=== PATIENT | male | born 1965 | race American Indian/Alaskan Native ===

== ENCOUNTER 2020-07-22 11:30 | Emergency (ER) | payer SELFPAY ==
[2020-07-22] MEDS ORDERED: ACETAMINOPHEN 325 MG TAB PO STA (12:07)
[2020-07-22] MEDS ORDERED: IPRATROPIUM 0.02% NEBU 2.5 ML IH ONE (12:07)
[2020-07-22] MEDS ORDERED: ALBUTEROL 2.5 MG/3 ML NEBU IH ONE (12:07)
[2020-07-22] MEDS ORDERED: IBUPROFEN 400 MG TAB PO ONE (12:08)
--- NOTE | 2020-07-22 12:09 | Emergency Department Report ---
ED General Adult HPI - General Chief complaint: Dyspnea/Respdistress Stated complaint: SHORTNESS OF BREATH PUI?: Yes Time Seen by Provider: 07/22/20 11:48 Source: patient, EMS ( EMS documentation not available at time of chart dictation ), RN notes reviewed Mode of arrival: Ambulatory Limitations: No Limitations - History of Present Illness Initial comments: The patient was evaluated in the emergency department for symptoms described in the history of present illness. He/she was evaluated in the context of the global COVID-19 pandemic, which necessitated consideration that the patient might be at risk for infection with the virus that causes COVID-19. Institutional protocols and algorithms that pertain to the evaluation of patients at risk for COVID-19 are in a state of rapid change based on information released by regulatory bodies including the CDC and federal and state organizations. These policies and algorithms were followed during the patient's care in the emergency department. Please note that these policies, procedures and recommendations changed on a rapid basis. During the entire history and physical examination, I had on complete personal protective equipment. The patient is a 55-year-old gentleman. He is not known to myself previously. He has a history of tobacco consumption The patient reports multiple negative COVID tests. He presents to the ER with a complaint of cough, chest wall pain with coughing, nasal congestion, clear mucus. Patient denies fever, chills, vomiting, diaphoresis, leg pain, leg swelling, DVT, pulmonary embolism risk factors. He also reports multiple negative COVID tests. -: Gradual, days(s) Location: chest Severity scale (0 -10): 0 Quality: aching Consistency: intermittent Improves with: rest Worsens with: movement (And coughing) - Related Data Previous Rx's Medication Instructions Recorded Last Taken Type Acetaminophen [Non-Aspirin Extra 500 mg PO Q6HR PRN #30 tablet 07/22/20 Unknown Rx Strength] Albuterol Sulfate [Proair 90 mcg IH Q4HR PRN #2 aer.pow.ba 07/22/20 Unknown Rx Respiclick] Ibuprofen [Motrin] 600 mg PO Q8H PRN #30 tablet 07/22/20 Unknown Rx predniSONE [Deltasone] 40 mg PO QDAY #8 tab 07/22/20 Unknown Rx ED Review of Systems ROS: Stated complaint: SHORTNESS OF BREATH Other details as noted in HPI Constitutional: denies: fever Eyes: denies: eye discharge ENT: congestion Respiratory: cough Cardiovascular: chest pain. denies: syncope Gastrointestinal: denies: abdominal pain, nausea, vomiting Musculoskeletal: arthralgia, myalgia Neurological: denies: weakness ED Past Medical Hx - Past Medical History Previous Medical History?: Yes Hx Hypertension: Yes Hx Asthma: Yes Hx HIV: Yes - Surgical History Past Surgical History?: No - Social History Smoking Status: Never Smoker Substance Use Type: None - Medications Home Medications: Home Medications Medication Instructions Recorded Confirmed Last Taken Type Acetaminophen [Non-Aspirin Extra 500 mg PO Q6HR PRN #30 tablet 07/22/20 Unknown Rx Strength] Albuterol Sulfate [Proair 90 mcg IH Q4HR PRN #2 aer.pow.ba 07/22/20 Unknown Rx Respiclick] Ibuprofen [Motrin] 600 mg PO Q8H PRN #30 tablet 07/22/20 Unknown Rx predniSONE [Deltasone] 40 mg PO QDAY #8 tab 07/22/20 Unknown Rx ED Physical Exam - General Limitations: No Limitations General appearance: alert, in no apparent distress - Head Head exam: Present: atraumatic, normocephalic - Eye Eye exam: Present: normal appearance, EOMI. Absent: nystagmus - ENT ENT exam: Present: normal exam, normal orophraynx, mucous membranes moist, normal external ear exam - Neck Neck exam: Present: normal inspection, full ROM. Absent: tenderness, meningismus - Respiratory Respiratory exam: Present: wheezes, rhonchi. Absent: respiratory distress, c hest wall tenderness, accessory muscle use, decreased breath sounds, prolonged expiratory - Cardiovascular Cardiovascular Exam: Present: regular rate, normal rhythm, normal heart sounds. Absent: bradycardia, tachycardia, irregular rhythm, systolic murmur, diastolic murmur, rubs, gallop - GI/Abdominal GI/Abdominal exam: Present: soft. Absent: distended, tenderness, guarding, rebound, rigid, pulsatile mass - Rectal Rectal exam: Present: deferred - Extremities Exam Extremities exam: Present: normal inspection, full ROM, other (2+ pulses noted in the bilateral upper and lower extremities. There is no palpable cord. negative Homans sign. Muscular compartments are soft. The pelvis is stable.). Absent: pedal edema, calf tenderness - Back Exam Back exam: Present: normal inspection, full ROM. Absent: tenderness, CVA tenderness (R), CVA tenderness (L), paraspinal tenderness, vertebral tenderness - Neurological Exam Neurological exam: Present: alert, other (No facial droop. Tongue midline. Extraocular movements intact bilaterally. Facial sensation intact to light touch in V1, V2, V3 distribution bilaterally. 5 and a 5 strength in 4 extremities. Sensation intact to light touch in 4 extremities.). Absent: motor sensory deficit - Psychiatric Psychiatric exam: Present: normal affect, normal mood - Skin Skin exam: Present: warm, dry, intact, normal color. Absent: rash ED Course Vital Signs 07/22/20 07/22/20 07/22/20 11:37 11:45 11:55 Temperature 98.5 F Pulse Rate 68 82 Respiratory 16 18 Rate Blood Pressure 138/81 115/20 Blood Pressure 115/80 [Right] O2 Sat by Pulse 98 96 100 Oximetry 07/22/20 07/22/20 07/22/20 12:00 12:10 12:15 Temperature Pulse Rate 69 Respiratory 18 18 21 Rate Blood Pressure 124/83 124/83 Blood Pressure [Right] O2 Sat by Pulse 98 100 98 Oximetry 07/22/20 07/22/20 07/22/20 12:31 12:45 12:58 Temperature Pulse Rate Respiratory 18 17 18 Rate Blood Pressure 124/83 124/83 Blood Pressure [Right] O2 Sat by Pulse 97 96 Oximetry 07/22/20 13:00 Temperature Pulse Rate Respiratory 13 Rate Blood Pressure 124/83 Blood Pressure [Right] O2 Sat by Pulse 99 Oximetry ED Medical Decision Making - Lab Data Result diagrams: 07/22/20 12:27 07/22/20 12:27 Vital Signs 07/22/20 07/22/20 07/22/20 11:37 11:45 11:55 Temperature 98.5 F Pulse Rate 68 82 Respiratory 16 18 Rate Blood Pressure 138/81 115/20 Blood Pressure 115/80 [Right] O2 Sat by Pulse 98 96 100 Oximetry 07/22/20 07/22/20 07/22/20 12:00 12:10 12:15 Temperature Pulse Rate 69 Respiratory 18 18 21 Rate Blood Pressure 124/83 124/83 Blood Pressure [Right] O2 Sat by Pulse 98 100 98 Oximetry 07/22/20 07/22/20 07/22/20 12:31 12:45 12:58 Temperature Pulse Rate Respiratory 18 17 18 Rate Blood Pressure 124/83 124/83 Blood Pressure [Right] O2 Sat by Pulse 97 96 Oximetry 07/22/20 13:00 Temperature Pulse Rate Respiratory 13 Rate Blood Pressure 124/83 Blood Pressure [Right] O2 Sat by Pulse 99 Oximetry Lab Results 07/22/20 07/22/20 07/22/20 Range/Units 12:27 12:27 12:27 Hgb 14.0 (11.8-15.2) gm/dl Hct 42.2 (35.5-45.6) % Plt Count 173 (140-440) K/mm3 PT 12.9 (12.2-14.9) Sec. INR 0.96 (0.87-1.13) Sodium 139 (137-145) mmol/L Potassium 4.7 (3.6-5.0) mmol/L Chloride 101.4 (98-107) mmol/L Carbon Dioxide 24 (22-30) mmol/L Anion Gap 18 mmol/L BUN 13 (9-20) mg/dL Creatinine 0.7 L (0.8-1.3) mg/dL Estimated GFR > 60 ml/min BUN/Creatinine Ratio 19 % Glucose 88 (75-100) mg/dL Calcium 9.3 (8.4-10.2) mg/dL Magnesium 2.10 (1.7-2.3) mg/dL Total Creatine Kinase 291 H (55-170) units/L Troponin T < 0.010 (0.00-0.029) ng/mL - EKG Data -: EKG Interpreted by Ut EKG shows normal: sinus rhythm Rate: bradycardia - EKG Data 07/22/20 14:12 No prior EKG available for comparison. Sinus rhythm, bradycardia, 59 bpm, normal axis, normal intervals, minimal motion artifact, no prior EKG available for comparison, the EKG is not a STEMI - Radiology Data Radiology results: report reviewed, image reviewed Print Report Referring Physician: SAMRA ZAMUDIO Patient Name: NOHEMI BOYKIN Date of : 1965 Sex: Male Report Date: 2020-07-22 Report Status: Finalized Findings [facility] [address] [place] [address] XRay Report Signed Patient: NOHEMI BOYKIN I MR#: [id number] 9 : 1965 Acct:[id number] Age/Sex: 55 / M ADM Date: 07/22/20 Loc: ED Attending Dr: Ordering Physician: SAMRA ZAMUDIO MD Date of Service: 07/22/20 Procedure(s): XR chest 1V ap Accession Number(s): [id number] cc: SAMRA ZAMUDIO MD Fluoro Time In Minutes: CHEST 1 VIEW INDICATION / CLINICAL INFORMATION: dyspnea. COMPARISON: None available. FINDINGS: SUPPORT DEVICES: None. HEART / MEDIASTINUM: No significant abnormality. LUNGS / PLEURA: No significant pulmonary or pleural abnormality. No pneumothorax. ADDITIONAL FINDINGS: No significant additional findings. IMPRESSION: 1. No acute findings. Signer Name: Gopal Ambrosio MD Signed: 07/22/2020 12:16 PM Workstation Name: [id number] Transcribed By: Dictated By: GOPAL AMBROSIO Electronically Authenticated By: GOPAL AMBROSIO Signed Date/Time: 07/22/20 121 DD/ 15 TD/TT: - Medical Decision Making Differential diagnosis, including but not limited to: Pneumonia, bronchitis, costochondritis, GERD, gastritis, hiatal hernia Assessment and plan: 55-year-old gentleman, who is afebrile, with reassuring vital signs, without DVT or pulmonary embolism risk factors, who is low risk by Wells criteria, not currently tachycardic, tachypneic or hypoxic, low risk for major adverse cardiac event as per heart score, symptoms present for almost 24 hours, troponin negative x1, as per the [employer] clinical policy, myocardial infarction may be ruled out with 1 set of cardiac enzymes/troponins, likely presenting with bronchitis, and chest wall pain. Laboratory studies unremarkable, EKG unremarkable, chest x-ray unremarkable, physical exam unremarkable with exception of mild wheezing and rhonchi. This is unlikely to be COVID. This is most likely bronchitis. Patient may be discharged with pain medication, cough medication, steroids, he will need to stop smoking. Critical care attestation.: If time is entered above; I have spent that time in minutes in the direct care of this critically ill patient, excluding procedure time. ED Disposition Clinical Impression: Bronchitis Disposition: DC-01 TO HOME OR SELFCARE Is pt being admited?: No Does the pt Need Aspirin: No Condition: Stable Instructions: Acute Bronchitis (ED) Additional Instructions: We recommend that the patient stop smoking. Consumption of smoke products is the most likely contributing factor to the patient's symptoms. Take the breathing medication, cough medication as needed and directed, pain medication as needed and directed, and steroids as directed. We recommend that the patient follow-up with an outpatient primary care doctor. Follow-up within the next 10 days. Recommend that patient continue to exercise social distancing practices, always wearing a mask when outside, avoiding exposure to large crowds and large groups of people, taking care to wash hands frequently, thoroughly and often. Please return to the emergency room right away with new pain, worsened pain, migration of pain, projectile vomiting, change in mental status, confusion, inability to tolerate liquid feeds, new, worsened or different symptoms not present on the initial emergency room evaluation. Referrals: ARRON ANAYA MD [Staff Physician] - 3-5 Days [facility] [Provider Group] - 3-5 Days
--- NOTE | 2020-07-22 12:21 | XRay Report ---
CHEST 1 VIEW INDICATION / CLINICAL INFORMATION: dyspnea. COMPARISON: None available. FINDINGS: SUPPORT DEVICES: None. HEART / MEDIASTINUM: No significant abnormality. LUNGS / PLEURA: No significant pulmonary or pleural abnormality. No pneumothorax. ADDITIONAL FINDINGS: No significant additional findings. IMPRESSION: 1. No acute findings. Signer Name: Gopal Fraser MD Signed: 07/22/2020 12:16 PM Workstation Name: [id number]
[2020-07-22 13:09] VITALS: BP 124/83
[2020-07-22 13:16] LABS: Hematocrit 42.2 % (35.5-45.6)
[2020-07-22 13:25] LABS: INR 0.96 (0.87-1.13)
[2020-07-22 13:37] LABS: Blood Urea Nitrogen 13 mg/dL (9-20); Calcium 9.3 mg/dL (8.4-10.2); Hemolysis Index 67
[2020-07-22 13:42] LABS: BUN/Creatinine Ratio 19
== END 2020-07-22 14:48 | disposition home or self-care (01) ==
LOC: ED 11:30
DX: J40 Bronchitis, not specified as acute or chronic (principal); I10 Essential (primary) hypertension; Z21 Asymptomatic human immunodeficiency virus [HIV] infection status; Z79.899 Other long term (current) drug therapy
CPT/HCPCS: 36415; 71045; 80048; 82550; 83735; 84484; 85014; 85018; 85049; 85610; 93005; 94640

== ENCOUNTER 2021-05-30 01:51 | Emergency (ER) | payer MEDICAID ==
[2021-05-30] MEDS ORDERED: ONDANSETRON 4 MG/2 ML INJ IV ONE (03:13)
[2021-05-30] MEDS ORDERED: HYDROmorphone 1 MG/1 ML INJ IV ONE (03:13)
--- NOTE | 2021-05-30 03:19 | Emergency Department Report ---
<KETURAH KOTHARI - Last Filed: 05/30/21 06:59> ED General Adult HPI - General Chief complaint: Fall Stated complaint: LOWER BACK PAIN Time Seen by Provider: 05/30/21 02:54 - Related Data Previous Rx's Medication Instructions Recorded Last Taken Type Acetaminophen [Non-Aspirin Extra 500 mg PO Q6HR PRN #30 tablet 07/22/20 Unknown Rx Strength] Albuterol Sulfate [Proair 90 mcg IH Q4HR PRN #2 aer.pow.ba 07/22/20 Unknown Rx Respiclick] Ibuprofen [Motrin] 600 mg PO Q8H PRN #30 tablet 07/22/20 Unknown Rx predniSONE [Deltasone] 40 mg PO QDAY #8 tab 07/22/20 Unknown Rx Cyclobenzaprine [Flexeril] 10 mg PO TID PRN #15 tablet 05/30/21 Unknown Rx Lidocaine [Lidoderm] 1 each TP BID #20 adh..patch 05/30/21 Unknown Rx Naproxen 500 mg PO BID #20 tablet 05/30/21 Unknown Rx Allergies Allergy/AdvReac Type Severity Reaction Status Date / Time No Known Allergies Allergy Unverified 05/30/21 02:40 ED Past Medical Hx - Medications Home Medications: Home Medications Medication Instructions Recorded Confirmed Last Taken Type Acetaminophen [Non-Aspirin Extra 500 mg PO Q6HR PRN #30 tablet 07/22/20 Unknown Rx Strength] Albuterol Sulfate [Proair 90 mcg IH Q4HR PRN #2 aer.pow.ba 07/22/20 Unknown Rx Respiclick] Ibuprofen [Motrin] 600 mg PO Q8H PRN #30 tablet 07/22/20 Unknown Rx predniSONE [Deltasone] 40 mg PO QDAY #8 tab 07/22/20 Unknown Rx Cyclobenzaprine [Flexeril] 10 mg PO TID PRN #15 tablet 05/30/21 Unknown Rx Lidocaine [Lidoderm] 1 each TP BID #20 adh..patch 05/30/21 Unknown Rx Naproxen 500 mg PO BID #20 tablet 05/30/21 Unknown Rx ED Medical Decision Making - Lab Data Result diagrams: 05/30/21 03:27 05/30/21 03:27 ED Disposition Clinical Impression: Back pain due to injury Disposition: DC-01 TO HOME OR SELFCARE Condition: Stable Instructions: Acute Back Pain, Adult Additional Instructions: Take Tylenol every 4 hours as needed for pain. Take Naprosyn twice daily with food as needed for pain. Take Flexeril as directed for muscle spasm. Do not drive or operate machinery while taking this medication. Do not consume alcohol taking this medication. Apply heat to affected area as needed for pain. Gradually advance physical activity slowly as tolerated. Follow-up with [facility] this week. Call today to schedule an appointment. Return to the emergency department immediately for new or worsening symptoms. Specifically, return to the emergency department immediately for worsening pain, numbness, tingling, weakness, bladder/bowel dysfunction, difficulty walking, or any other concerns. Prescriptions: Cyclobenzaprine [Flexeril] 10 mg PO TID PRN #15 tablet PRN Reason: Muscle Spasm Lidocaine [Lidoderm] 1 each TP BID #20 adh..patch Naproxen 500 mg PO BID #20 tablet Referrals: [facility] [Provider Group] - 3-5 Days Forms: Work/School Release Form(ED) Time of Disposition: 06:59 <PATRICIA OWUSU - Last Filed: 05/30/21 16:37> ED General Adult HPI - General Source: patient Mode of arrival: Wheelchair Limitations: Physical Limitation - History of Present Illness Initial comments: 56-year-old male patient presents to the emergency department via EMS with complaints of back pain status post fall 4 days ago. 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 There was no resulting head injury or loss of consciousness. Patient has been struggling to ambulate since the fall. No history of prior back surgeries. Patient is not anticoagulated. Denies headache, neck pain, chest pain, abdominal pain, bladder/bowel dysfunction, paresthesias, numbness, weakness. Denies all other complaints at this time. ED Review of Systems ROS: Stated complaint: LOWER BACK PAIN Other details as noted in HPI Other: CARDIOVASCULAR: Negative for chest pain. PULMONARY: Negative for dyspnea. GASTROINTESTINAL: Negative for abdominal pain. MUSCULOSKELETAL: Positive for back pain NEUROLOGICAL: Negative for headache. INTEGUMENTARY: Negative for ecchymosis. ED Past Medical Hx - Past Medical History Previous Medical History?: Yes Hx Hypertension: Yes Hx Asthma: Yes Hx HIV: Yes - Surgical History Past Surgical History?: No - Social History Smoking Status: Never Smoker Substance Use Type: None ED Physical Exam - General Limitations: Physical Limitation - Other Other exam information: Airway: Patent and intact. Trachea is midline. Breathing: Clear to auscultation bilaterally. No respiratory distress. Circulation: Regular rate and rhythm, no murmurs, no pulse deficit, normal peripheral perfusion. Deficit (Neuro): Awake, alert, appropriately interactive. GCS 15. Strength and sensation intact. Follows commands. No focal deficits. HEENT: Normocephalic, atraumatic. EOMI. Pupils equal round reactive to light. No intraoral lesions. No malocclusion. Facial bones are stable. No ecchymosis suggestive of basilar skull fracture. Neck: No posterior midline cervical tenderness. No step-offs. Active rotation of the cervical spine intact bilaterally. Chest Wall: Equal chest rise. Chest wall is non-tender, no deformity, no cre pitus. Abdominal: Soft, non-tender. No guarding, rigidity, or rebound. No discoloration. No organomegaly. FAST exam is negative. Skin: No abrasions, lacerations, or ecchymosis. Back: Tenderness to palpation along the left paraspinal thoracolumbar area with palpable muscle spasm. No saddle anesthesia. No evidence of bladder/bowel incontinence. Good rectal tone. 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 Extremities: Non-tender. Moves all four extremities spontaneously. Full range of motion intact. No apparent deformity. Neurovascular and motor/sensory function intact. ED Course Vital Signs 05/30/21 05/30/21 05/30/21 02:39 03:33 03:40 Temperature 98.6 F Pulse Rate 69 56 L 87 Respiratory 18 13 9 L Rate Blood Pressure 142/80 140/77 Blood Pressure [Right] O2 Sat by Pulse 93 100 90 Oximetry 05/30/21 05/30/21 03:50 08:47 Temperature 98.1 F Pulse Rate 85 88 Respiratory 14 19 Rate Blood Pressure 140/77 Blood Pressure 132/81 [Right] O2 Sat by Pulse 96 99 Oximetry ED Medical Decision Making - Lab Data Result diagrams: 05/30/21 03:27 05/30/21 03:27 - Medical Decision Making Differential diagnosis including but not limited to: cauda equina syndrome, disk herniation, vertebral fracture, sprain/strain, muscle spasm, cord syndrome On reevaluation, patient is stable. Repeat neurovascular exam remains intact. CT of the head/cervical spine/chest/abdomen/pelvis within normal limits. No clinical indication for further diagnostic work-up on an emergent basis at this time. He is ambulatory without assistance at the time of discharge. The patients back pain is not associated with numbness, tingling, or loss of strength. There is no acute urinary incontinence or retention and no bowel incontinence or retention. There is no saddle anesthesia. The patient is afebrile and neurovascularly intact. No clinical evidence for spinal cord injury or vertebral fracture. It has been explained to the patient that advanced imaging such as MRI is not indicated at this time but should be considered if symptoms recur or worsen. Discharged home with appropriate prescriptions and instructions to follow up with primary care provider. Strict return precautions provided. Emphasized the importance of outpatient follow-up and specific signs/symptoms that should warrant immediate return to the emergency department. Patient expressed understanding and was given the opportunity to ask questions, all of which were satisfactorily answered prior to discharge home. Critical care attestation.: If time is entered above; I have spent that time in minutes in the direct care of this critically ill patient, excluding procedure time. ED Disposition Is pt being admited?: No Does the pt Need Aspirin: No
[2021-05-30 04:21] LABS: Basophils % (Auto) 0.3 % (0.0-1.8); Eosinophils % (Auto) 0.7 % (0.0-4.3); Hematocrit 38.7 % (35.5-45.6); Hemoglobin 12.8 gm/dl (11.8-15.2); Lymphocytes # (Auto) 1.5 K/mm3 (1.2-5.4); Lymphocytes % (Auto) 22.5 % (13.4-35.0); Mean Corpuscular HGB Conc 33 % (32-34); Mean Corpuscular Volume 82 fl (84-94); Monocytes # (Auto) 0.8 K/mm3 (0.0-0.8); Monocytes % (Auto) 11.9 % (0.0-7.3); Platelet Count 156 K/mm3 (140-440); Red Blood Count 4.71 M/mm3 (3.65-5.03); Red Cell Distribution Width 15.8 % (13.2-15.2)
[2021-05-30 04:40] LABS: Alanine Aminotransferase 6 units/L (7-56); Blood Urea Nitrogen 9 mg/dL (9-20); Calcium 9.2 mg/dL (8.4-10.2); Hemolysis Index 3
[2021-05-30 04:42] LABS: BUN/Creatinine Ratio 13
--- NOTE | 2021-05-30 05:43 | Cat Scan Report ---
CT HEAD WITHOUT CONTRAST INDICATION / CLINICAL INFORMATION: 18 foot fall. Head trauma. TECHNIQUE: All CT scans at this location are performed using CT dose reduction for ALARA by means of automated exposure control. COMPARISON: None available. FINDINGS: HEMORRHAGE: None. EXTRA-AXIAL SPACES: Normal in size and morphology for the patient's age. VENTRICULAR SYSTEM: Normal in size and morphology for the patient's age. CEREBRAL PARENCHYMA: No significant abnormality. No acute territorial infarct. MIDLINE SHIFT / HERNIATION: None. CEREBELLUM / BRAINSTEM: No significant abnormality. ORBITS: Normal as visualized. SOFT TISSUES: No significant abnormality. SKULL: No significant abnormality. PARANASAL SINUSES / MASTOID AIR CELLS: Normal as visualized. ADDITIONAL FINDINGS: None. IMPRESSION: 1. No acute intracranial abnormality. Signer Name: Kezia Parson MD Signed: 05/30/2021 5:38 AM Workstation Name: [id number]
--- NOTE | 2021-05-30 05:44 | Cat Scan Report ---
CT CERVICAL SPINE WITHOUT CONTRAST INDICATION / CLINICAL INFORMATION: 18 foot fall. Neck pain. TECHNIQUE: Axial CT images were obtained through the cervical spine. Sagittal and coronal reformatted images were produced. All CT scans at this location are performed using CT dose reduction for ALARA by means of automated exposure control. COMPARISON: None available. FINDINGS: VERTEBRAE: No significant abnormality. ALIGNMENT: No significant abnormality. DISC SPACES: Mild discogenic spondylosis of the lower cervical spine. FACET JOINTS: No significant abnormality. CRANIOCERVICAL JUNCTION:No significant abnormality. SPINAL CANAL: No significant abnormality. PARASPINAL SOFT TISSUES: No significant abnormality. ADDITIONAL FINDINGS: None. LUNG APICES: No significant abnormality of visualized lungs. IMPRESSION: 1. No acute abnormality. Signer Name: Kezia Parson MD Signed: 05/30/2021 5:40 AM Workstation Name: [id number]
--- NOTE | 2021-05-30 05:47 | Cat Scan Report ---
CT CHEST, ABDOMEN, AND PELVIS WITH CONTRAST INDICATION / CLINICAL INFORMATION: 18 foot fall. Chest and abdominal pain. TECHNIQUE: Axial CT images were obtained through the chest, abdomen, and pelvis after 100 mL Omnipaqu e [address] scans at this location are performed using CT dose reduction for ALARA by pepe lopez of automated exposure control. COMPARISON: None available. FINDINGS: HEART: No significant abnormality. CORONARY ARTERY CALCIFICATION: None. THORACIC AORTA: No significant abnormality. MEDIASTINUM / ELIZABETH: No significant abnormality. PLEURA: No pleural effusion. No pneumothorax. LUNGS: No acute air space or interstitial disease. ADDITIONAL CHEST FINDINGS: None. LIVER: No significant abnormality. GALLBLADDER: Small calcified stones without gallbladder wall thickening or inflammation. BILE DUCTS: No significant abnormality. PANCREAS: No significant abnormality. SPLEEN: No significant abnormality. ADRENALS: No significant abnormality. RIGHT KIDNEY / URETER: No significant abnormality. LEFT KIDNEY / URETER: No significant abnormality. STOMACH and SMALL BOWEL: No significant abnormality. COLON: No significant abnormality. APPENDIX: Not seen. PERITONEUM: No free fluid. No free air. No fluid collection. LYMPH NODES: No significant adenopathy. AORTA / ARTERIES: No significant abnormality. IVC / VEINS: No significant abnormality. URINARY BLADDER: No significant abnormality. REPRODUCTIVE ORGANS: No significant abnormality. ADDITIONAL FINDINGS: None. SKELETAL SYSTEM: No significant abnormality. IMPRESSION: 1. No acute injury of the chest, abdomen, or pelvis. 2. Cholelithiasis. Signer Name: Kezia Parson MD Signed: 05/30/2021 5:43 AM Workstation Name: [id number]
[2021-05-30 08:49] VITALS: BP 132/81
== END 2021-05-30 08:49 | disposition home or self-care (01) ==
LOC: ED 01:51
DX: S39.92XA Unspecified injury of lower back, initial encounter (principal); I10 Essential (primary) hypertension; J45.909 Unspecified asthma, uncomplicated; W17.89XA Other fall from one level to another, initial encounter; Y93.89 Activity, other specified; Y92.89 Other specified places as the place of occurrence of the external cause; Y99.8 Other external cause status
CPT/HCPCS: 36415; 70450; 71260; 72125; 74177; 80053; 85025; 96374; 96375; 99284; J1170; J2405; Q9967